=== PATIENT | female | born 1975 | race African-American/Black ===

== ENCOUNTER 2019-06-10 02:40 | Inpatient (IN) | payer MEDICARE ==
[2019-06-10 04:28] LABS: Troponin I 0.062 ng/mL (< 0.028)
[2019-06-10 07:08] LABS: Troponin I 0.043 ng/mL (< 0.028)
[2019-06-10 07:30] LABS: Acetaminophen Less than 6.0 mcg/mL (10.0-30.0); Alcohol Less than 10 mg/dL (Less than 10); Salicylate Less than 8.0 mg/dL (15.0-30.0)
--- NOTE | 2019-06-10 07:55 | PDOC.HHP ---
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 She was tachycardic in [place] to 120 and [place] 210/100, got lasix and nitropaste and BP improved, 130/90s now. PCP is Dr Israel, she has seen cardiology a long time ago when she was first diagnosed with chf but has not been a problem for a long time until this week and does not even remember cardiologists name. last stress test was negative but that was about 5 years ago per patient. she is on arb, coreg, lasix at home w/ asa and is compliant Hospitalist ROS - Review of Systems Constitutional: reports: chills, weakness. denies: fever Eyes: denies: vision change, redness ENT: reports: nose discharge, nose congestion, throat pain. denies: ear pain, throat swelling Respiratory: reports: cough, shortness of breath, SOB with excertion Cardiovascular: denies: chest pain, palpitations Gastrointestinal: denies: nausea, vomiting Genitourinary: denies: dysuria, frequency Musculoskeletal: denies: neck pain, shoulder pain Skin: denies: rash, lesions Neurological: denies: weakness, numbness All other systems reviewed; all pertinent +/- noted in HPI/Subj - Medication Medications: reviewed, see chart for list Hospitalist History - Past Medical History Other Medical History: CHF, HTN - Past Surgical History Past Surgical History: reports: Tubal Ligation - Family History Family History: reports: no pertinent history - Social History Smoking Status: Never smoker Alcohol: reports: None Drugs: reports: none - Exam General Appearance: NAD, awake alert Eye: PERRL, anicteric sclera ENT: normocephalic atraumatic, no oropharyngeal lesions, moist mucosa Neck: supple, symmetric, no JVD, no thyromegaly, no lymphadenopathy, no carotid bruit Heart: RRR, no murmur, no gallops, no rubs, normal peripheral pulses Respiratory: CTAB, no wheezes, no rales, no ronchi, normal chest expansion, no tachypnea, normal percussion Gastrointestinal: soft, non-tender, non-distended, normal bowel sounds, no palpable masses, no hepatomegaly, no splenomegaly, no bruit Extremities: no cyanosis, no clubbing, 2+ LE edema Skin: no lesions, no rashes Neurological: cranial nerve grossly intact, normal sensation to touch, no weakness, no focal deficits, no new deficit Musculoskeletal: normal tone, normal strength, no muscle wasting Psychiatric: normal affect, normal behavior, A&O x 3 Hospitalist Results - Labs Lab results: Troponin I 0.043 ng/mL (< 0.028) H 06/10/19 06:36 Additional comment: EKG sinus [address] elevations or depressions Hospitalist H&P A/P - Plan Plan: 43 year old female admitted for: # acute on chronic heart failure, type unknown - echo - trend troponins - continue home cardiac meds and ASA, continue nitro ointment - increase hydralazine to 50mg TID from 25 - lasix 80mg IV BID - consult cardiology for risk stratification, negative stress test 5 years ago, normally has no symptoms, this exacerbation likely touched off by recent URI. note that labs on day of admission are mostly in chart from [place], there was a CXR w/ volume overload, no infiltrates, tni was 0.07 there as well # HTN urgency - was very high on admission, SBP in 210 range. this is likely due to volume overload. continue lasix as above, PRNs in chart, increase hydralazine for a few days and continue nitropaste until diuresis has a chance to work.
[2019-06-10] MEDS ORDERED: hydrALAZINE 20 MG/ML VIAL SLOW IVP PRN (07:58)
[2019-06-10] MEDS ORDERED: Ondansetron PF 4 MG/2 ML Vial IVP PRN (07:58)
[2019-06-10] MEDS ORDERED: Promethazine HCl 12.5 MG in Sodium Chloride 0.9% 50 ML IVPB PRN (07:58)
[2019-06-10] MEDS ORDERED: cloNIDine 0.1 MG TAB PO PRN (07:58)
[2019-06-10] MEDS ORDERED: Bisacodyl 10 MG SUPP PR PRN (08:00)
[2019-06-10] MEDS ORDERED: Bisacodyl 5 MG TAB PO PRN (08:00)
[2019-06-10] MEDS ORDERED: Acetaminophen 325 MG TAB PO PRN (08:00)
[2019-06-10] MEDS ORDERED: HYDROcodone/Acetaminophen 5/325 mg Tablet PO PRN (08:00)
[2019-06-10] MEDS ORDERED: Furosemide 100 MG/10 ML VIAL ONE ×2 (08:02→15:03)
[2019-06-10] MEDS ORDERED: Morphine 2 MG/ML SYRINGE SLOW IVP PRN (08:04)
[2019-06-10] MEDS: Furosemide 100 MG/10 ML VIAL SLOW IVP SCH ×2 (08:05→15:09)
[2019-06-10 08:32] LABS: Troponin I 0.049 ng/mL (< 0.028)
[2019-06-10] MEDS ORDERED: Enoxaparin Sodium 40 MG/0.4 ML SYRINGE ONE (08:41)
[2019-06-10] MEDS ORDERED: Aspirin Chewable 81 MG TAB ONE (08:41)
[2019-06-10] MEDS ORDERED: hydrALAZINE 25 MG TAB ONE ×2 (08:41→15:03)
[2019-06-10] MEDS: Aspirin 81 mg Enteric Coated Tablet PO SCH (08:49)
[2019-06-10] MEDS: Enoxaparin Sodium 40 MG/0.4 ML SYRINGE SC SCH (08:49)
[2019-06-10] MEDS: hydrALAZINE 25 MG TAB PO SCH ×3 (08:50→21:24)
[2019-06-10] MEDS: Senokot S 8.6-50 MG TAB PO SCH ×2 (08:51→21:24)
[2019-06-10 08:57] LABS: Amphetamine Not Detected (NotDetected); Barbiturates Screen Not Detected (NotDetected); Benzodiazepine Screen Not Detected (NotDetected); Cocaine Metabolite Screen Not Detected (NotDetected); Medtox Control Line Valid? VALID (VALID); Medtox Reader # READER 1; Methadone Not Detected (NotDetected); Methamphetamine Not Detected (NotDetected); Opiate Screen Not Detected (NotDetected); Oxycodone Screen Not Detected (NotDetected); Phencyclidine (PCP) Not Detected (NotDetected); THC/Cannabinoid Screen Not Detected (NotDetected); Tricyclic Screen Not Detected (NotDetected)
[2019-06-10 09:00] LABS: INR-International Normal Ratio 1.4; Prothrombin Time 17.1 SEC (12.0-14.7)
[2019-06-10 09:06] LABS: ALT (SGPT) 18 U/L (8-55); AST (SGOT) 22 U/L (5-34); Alkaline Phosphatase 63 U/L (40-110); Anion Gap 15 mmol/L (10-20); BUN (Urea Nitrogen) 10 mg/dL (7.0-18.7); Bilirubin, Direct 0.9 mg/dL (0.1-0.3); Bilirubin, Total 4.2 mg/dL (0.2-1.2); Calc. Creatinine Clearance 0 mL/min (70-130); Calcium 9.5 mg/dL (7.8-10.44); Carbon Dioxide 24 mmol/L (22-29); Chloride 105 mmol/L (98-107); Estimated GFR-MDRD Greater than 90; Glucose 99 mg/dL (70-105); Magnesium 1.7 mg/dL (1.6-2.6); Potassium 3.6 mmol/L (3.5-5.1); Protein, Total 7.9 g/dL (6.0-8.3); Sodium 140 mmol/L (136-145)
[2019-06-10 09:11] LABS: Band 6 % (5-11); Hemoglobin 11.3 g/dL (12.0-16.0); Lymphocytes 11 % (21-51); MDiff Complete? YES; Mean Corpuscular HGB CONC 30.9 g/dL (32.0-36.0); Mean Corpuscular Volume 74.4 fL (78.0-98.0); Mean Platelet Volume 8.4 fL (7.4-10.4); Microcytosis SLIGHT = 6-15 cells (100X) (0-5/hpf); Monocytes 2 % (0-10); Neutrophil 81 % (42-75); Platelet Count 351 thou/uL (130-400); Polychromasia SLIGHT = 2-3 cells (100X) (0-2/hpf); RBC Distribution Width 17.9 % (11.5-14.5); Red Blood Cell (RBC) Count 4.89 mill/uL (4.20-5.40); White Blood Cell (WBC) Count 16.9 thou/uL (4.8-10.8)
[2019-06-10] MEDS: Carvedilol 3.125 MG TAB PO SCH ×2 (09:58→21:24)
[2019-06-10] MEDS: Losartan 25 MG TAB PO SCH (09:58)
[2019-06-10 14:47] LABS: Troponin I 0.063 ng/mL (< 0.028)
[2019-06-10] MEDS ORDERED: Nitroglycerin 2% Ointment 1 INCH/1 GM Packet ONE (15:03)
[2019-06-10] MEDS: Nitroglycerin 2% Ointment 1 INCH/1 GM Packet TOP SCH ×2 (15:05→21:33)
--- NOTE | 2019-06-10 17:14 | PDOC.HOSPP ---
- Subjective Encounter Date: 06/10/19 Encounter Time: 12:00 Subjective: sob is slightly better, is passing a lot of urine daughter at bedside getting a echo done - Objective Vital Signs & Weight: Vital Signs (12 hours) Pulse 06/10/19 15:09 98 06/10/19 08:50 117 H Result Diagrams: 06/10/19 08:31 06/10/19 08:31 Hospitalist ROS - Medication Medications: Active Medications Generic Name Dose Route Start Last Admin Trade Name Freq PRN Reason Stop Dose Admin Aspirin 81 mg 06/10/19 09:00 06/10/19 08:49 Ecotrin PO 81 mg DAILY NADIYA Administration Carvedilol 3.125 mg 06/10/19 09:00 06/10/19 09:58 Coreg PO 3.125 mg BID NADIYA Administration Enoxaparin Sodium 40 mg 06/10/19 09:00 06/10/19 08:49 Lovenox SC 40 mg 0900 NADIYA Administration Furosemide 80 mg 06/10/19 06:00 06/10/19 15:09 Lasix SLOW IVP 80 mg 0600,1400 NADIYA Administration Hydralazine HCl 50 mg 06/10/19 09:00 06/10/19 15:09 Apresoline PO 50 mg TID NADIYA Administration Losartan Potassium 100 mg 06/10/19 09:00 06/10/19 09:58 Cozaar PO 100 mg DAILY NADIYA Administration Nitroglycerin 0.5 inch 06/10/19 14:00 06/10/19 15:05 Nitro-Bid 2% Ointment TOP 0.5 inch Q8HR NADIYA Administration Pantoprazole Sodium 40 mg 06/10/19 09:00 06/10/19 08:51 Protonix PO 40 mg DAILY NADIYA Administration Senna/Docusate Sodium 1 tab 06/10/19 09:00 06/10/19 08:51 Senokot S PO 1 tab BID NADIYA Administration Sodium Chloride 10 ml 06/10/19 09:00 06/10/19 08:05 Flush - Normal Saline IVF 10 ml Q12HR NADIYA Administration - Exam General Appearance: awake alert Eye: PERRL, anicteric sclera ENT: no oropharyngeal lesions, moist mucosa Neck: supple, JVD Heart: RRR, no murmur Respiratory: no wheezes, rales Gastrointestinal: soft, non-tender, non-distended, normal bowel sounds Extremities: no cyanosis, 1+ LE edema Neurological: cranial nerve grossly intact, no focal deficits Psychiatric: normal affect, A&O x 3 Hosp A/P (1) Acute exacerbation of CHF (congestive heart failure) Code(s): I50.9 - HEART FAILURE, UNSPECIFIED Status: Acute Qualifiers: Heart failure type: systolic Qualified Code(s): I50.23 - Acute on chronic systolic (congestive) heart failure (2) Hypertensive urgency Code(s): I16.0 - HYPERTENSIVE URGENCY Status: Acute (3) Obesity Code(s): E66.9 - OBESITY, UNSPECIFIED Status: Chronic (4) Dyslipidemia Code(s): E78.5 - HYPERLIPIDEMIA, UNSPECIFIED Status: Chronic - Plan is on aggressive dose of diuretics, will scale it down in am htn is slowly getting controlled is on nitropaste, coreg, cozaar, hydralazine, and multiple prn's hemostable echo shows ef of 35% cardio consultation last stress test was years ago, ? more than 5 yrs back to [facility] as tolerated would want her BP to come down slowly, will likely get lower by am, donot push too many anti HTN prn's sbp around 160-180 is fine for today with scheduled meds
[2019-06-10 17:26] VITALS: BMI 57.4
[2019-06-10] MEDS ORDERED: guaiFENesin 100 MG/5 ML UDCUP PO PRN (18:43)
[2019-06-10 20:25] LABS: Troponin I 0.065 ng/mL (< 0.028)
[2019-06-10 21:21] LABS: Lactic Acid 1.4 mmol/L (0.5-2.2)
[2019-06-10 21:24] LABS: ALT (SGPT) 18 U/L (8-55); AST (SGOT) 23 U/L (5-34); Alkaline Phosphatase 62 U/L (40-110); Anion Gap 14 mmol/L (10-20); BUN (Urea Nitrogen) 12 mg/dL (7.0-18.7); Bilirubin, Total 4.1 mg/dL (0.2-1.2); Calc. Creatinine Clearance 196 mL/min (70-130); Calcium 9.7 mg/dL (7.8-10.44); Carbon Dioxide 26 mmol/L (22-29); Chloride 102 mmol/L (98-107); Estimated GFR-MDRD 85; Globulin 4.1 g/dL (2.4-3.5); Glucose 90 mg/dL (70-105); Magnesium 1.8 mg/dL (1.6-2.6); Potassium 3.8 mmol/L (3.5-5.1); Protein, Total 8.1 g/dL (6.0-8.3); Sodium 138 mmol/L (136-145)
[2019-06-11 05:05] LABS: #Basophils 0.1 thou/uL (0.0-0.2); #Eosinphils 0.1 thou/uL (0.0-0.7); #Lymphocytes 1.5 thou/uL (1.20-3.40); #Monocytes 0.6 thou/uL (0.11-0.59); #Neutrophils 7.2 thou/uL (1.40-6.50); %Basophils 0.5 % (0.0-1.0); %Eosinophils 1.5 % (0.0-10.0); %Lymphocytes 15.4 % (21.0-51.0); %Monocytes 6.5 % (0.0-10.0); Hemoglobin 10.6 g/dL (12.0-16.0); Mean Corpuscular HGB CONC 30.3 g/dL (32.0-36.0); Mean Corpuscular Hemoglobin 22.5 pg (27.0-31.0); Mean Corpuscular Volume 74.2 fL (78.0-98.0); Mean Platelet Volume 8.5 fL (7.4-10.4); Platelet Count 337 thou/uL (130-400); RBC Distribution Width 17.3 % (11.5-14.5); Red Blood Cell (RBC) Count 4.69 mill/uL (4.20-5.40); White Blood Cell (WBC) Count 9.4 thou/uL (4.8-10.8)
[2019-06-11 05:32] LABS: Anion Gap 14 mmol/L (10-20); BUN (Urea Nitrogen) 12 mg/dL (7.0-18.7); Calc. Creatinine Clearance 216 mL/min (70-130); Calcium 9.1 mg/dL (7.8-10.44); Carbon Dioxide 24 mmol/L (22-29); Chloride 102 mmol/L (98-107); Estimated GFR-MDRD Greater than 90; Glucose 93 mg/dL (70-105); Magnesium 1.9 mg/dL (1.6-2.6); Potassium 3.5 mmol/L (3.5-5.1); Sodium 136 mmol/L (136-145)
[2019-06-11] MEDS: Furosemide 40 MG/4 ML VIAL SLOW IVP SCH ×2 (06:20→15:16)
[2019-06-11] MEDS: Nitroglycerin 2% Ointment 1 INCH/1 GM Packet TOP SCH ×2 (06:28→13:26)
[2019-06-11] MEDS: hydrALAZINE 25 MG TAB PO SCH ×2 (09:12→21:21)
[2019-06-11] MEDS: Senokot S 8.6-50 MG TAB PO SCH ×2 (09:12→21:26)
[2019-06-11] MEDS: Aspirin 81 mg Enteric Coated Tablet PO SCH (09:12)
[2019-06-11] MEDS: Carvedilol 3.125 MG TAB PO SCH ×2 (09:12→21:25)
[2019-06-11] MEDS: Enoxaparin Sodium 40 MG/0.4 ML SYRINGE SC SCH (09:12)
[2019-06-11] MEDS: Diabetic Tussin 200 MG/10 ML UDCUP PO PRN (09:19)
[2019-06-11] MEDS: Losartan 25 MG TAB PO SCH (09:30)
--- NOTE | 2019-06-11 14:15 | PDOC.HOSPP ---
- Subjective Encounter Date: 06/11/19 Encounter Time: 11:30 Subjective: sob is better, is sitting in chair slept better last night is diuresing well, no chest pain or dizziness - Objective Vital Signs & Weight: Vital Signs (12 hours) Temp Pulse Resp BP BP BP Pulse Ox 06/11/19 11:59 97.5 F L 95 16 97/51 L 95 06/11/19 09:12 98 123/87 06/11/19 07:38 97.6 F 98 26 H 123/87 92 L 06/11/19 03:13 98.2 F 95 20 108/64 95 Weight Weight 313 lb 9.6 oz I&O: 06/10/19 06/11/19 06/12/19 06:59 06:59 06:59 Intake Total 240 Output Total 775 Balance -535 Result Diagrams: 06/11/19 04:44 06/11/19 04:44 Hospitalist ROS - Medication Medications: Active Medications Generic Name Dose Route Start Last Admin Trade Name Freq PRN Reason Stop Dose Admin Acetaminophen 650 mg 06/10/19 08:00 06/10/19 21:22 Tylenol PO 650 mg Q4H PRN Administration Headache/Fever/Mild Pain (1-3) Aspirin 81 mg 06/10/19 09:00 06/11/19 09:12 Ecotrin PO 81 mg DAILY NADIYA Administration Bisacodyl 10 mg 06/10/19 08:00 06/10/19 19:28 Dulcolax PO 10 mg DAILYPRN PRN Administration Constipation Carvedilol 3.125 mg 06/10/19 09:00 06/11/19 09:12 Coreg PO 3.125 mg BID NADIYA Administration Enoxaparin Sodium 40 mg 06/10/19 09:00 06/11/19 09:12 Lovenox SC 40 mg 0900 NADIYA Administration Furosemide 40 mg 06/11/19 06:00 06/11/19 06:20 Lasix SLOW IVP 40 mg 0600,1400 NADIYA Administration Guaifenesin 300 mg 06/10/19 19:31 06/11/19 09:19 Robitussin Sf PO 300 mg Q6H PRN Administration Cough Hydralazine HCl 50 mg 06/10/19 09:00 06/11/19 09:12 Apresoline PO 50 mg TID NADIYA Administration Losartan Potassium 100 mg 06/10/19 09:00 06/11/19 09:30 Cozaar PO 100 mg DAILY NADIYA Administration Nitroglycerin 0.5 inch 06/10/19 14:00 06/11/19 13:26 Nitro-Bid 2% Ointment TOP Not Given Q8HR NADIYA Pantoprazole Sodium 40 mg 06/10/19 09:00 06/11/19 09:12 Protonix PO 40 mg DAILY NADIYA Administration Senna/Docusate Sodium 1 tab 06/10/19 09:00 06/11/19 09:12 Senokot S PO 1 tab BID NADIYA Administration Sodium Chloride 10 ml 06/10/19 09:00 06/11/19 09:30 Flush - Normal Saline IVF 10 ml Q12HR NADIYA Administration - Exam General Appearance: awake alert Eye: PERRL, anicteric sclera ENT: no oropharyngeal lesions, moist mucosa Neck: supple, no JVD Heart: RRR, no murmur Respiratory: no wheezes, no rales, rhonchi Gastrointestinal: soft, non-tender, non-distended, normal bowel sounds Extremities: no cyanosis, 1+ LE edema Neurological: cranial nerve grossly intact, no focal deficits Psychiatric: normal affect, A&O x 3 Hosp A/P (1) Acute exacerbation of CHF (congestive heart failure) Code(s): I50.9 - HEART FAILURE, UNSPECIFIED Status: Acute Qualifiers: Heart failure type: systolic Qualified Code(s): I50.23 - Acute on chronic systolic (congestive) heart failure (2) Hypertensive urgency Code(s): I16.0 - HYPERTENSIVE URGENCY Status: Resolved (3) Obesity Code(s): E66.9 - OBESITY, UNSPECIFIED Status: Chronic (4) Dyslipidemia Code(s): E78.5 - HYPERLIPIDEMIA, UNSPECIFIED Status: Chronic - Plan htn is well controlled now, reduce dose of hydralazine and dc nitropaste is on coreg, cozaar, hydralazine, and multiple prn's hemostable echo shows ef of 35% cardio consultation last stress test was years ago, ? more than 5 yrs back to amb as tolerated dc plan in am if no cardiac w/u is planned
--- NOTE | 2019-06-11 21:18 | CON ---
DATE OF CONSULTATION: REASON FOR CONSULTATION: Acute on chronic systolic heart failure. HISTORY OF PRESENT ILLNESS: Ms. Childs is a 43-year-old woman who was seen and evaluated in the past. She was last seen 4 years ago. At that time, she had an LVEF 35% to 40%. This is felt to be nonischemic. She has been lost to follow up. She has not been seen or evaluated by Cardiology in the past. She states she had dietary indiscretion over the holidays. She had increased edema in addition to increased shortness of breath. No chest pain, pressure, dizziness, lightheadedness, syncope or presyncope present. PAST MEDICAL HISTORY: Chronic systolic heart failure, hypertension, BTL. SOCIAL HISTORY: No current tobacco or alcohol use. She is currently employed. FAMILY HISTORY: Negative for CAD. HOME MEDICATIONS: 1. Hydralazine. 2. Lasix. 3. Iron sulfate. 4. Losartan. 5. Carvedilol. REVIEW OF SYSTEMS: A 10-point review of systems is reviewed and as above, otherwise negative. PHYSICAL EXAMINATION: GENERAL: Patient is a pleasant female who is in no acute distress. The patient appears their stated age. VITAL SIGNS: Blood pressure 99/58, pulse 94, temperature 97.5. NEUROLOGIC: The patient is alert and oriented x3 with no focal neurologic deficits. HEENT: Sclerae without icterus. Mouth has moist mucous membranes with normal pallor. NECK: No JVD. Carotid upstroke brisk. No bruits bilaterally. LUNGS: Crackles noted bilaterally. BACK: No scoliosis or kyphosis. CARDIAC: Regular rate and rhythm with normal S1 and S2. No S3 or S4 noted. No significant rubs, murmurs, thrills, or gallops noted throughout the precordium. PMI is not displaced. There is no parasternal heave. ABDOMEN: Soft, nontender, nondistended. No peritoneal signs present. No hepatosplenomegaly. No abnormal striae. EXTREMITIES: 2+ femoral and 2+ dorsalis pedis pulses. No cyanosis, clubbing, or edema. SKIN: No gross abnormalities. PERTINENT LABORATORY DATA: Hemoglobin 10.6. Creatinine 0.79. Peak troponin 0.065. Echo Doppler shows LVEF 30% to 35%, [id number] MR present. IMPRESSION: Acute on chronic systolic heart failure. Likely etiology is dietary discretion. RECOMMENDATIONS: As follows: 1. Continue carvedilol in addition to losartan. 2. Continue Lasix at 40 mg IV b.i.d. unless blood pressure decreases to consistent 90s systolic or if symptomatic. 3. Consider adding Entresto. 4. 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 Job ID: [id number]
[2019-06-12 05:16] LABS: #Basophils 0.1 thou/uL (0.0-0.2); #Eosinphils 0.3 thou/uL (0.0-0.7); #Lymphocytes 1.6 thou/uL (1.20-3.40); #Monocytes 0.6 thou/uL (0.11-0.59); #Neutrophils 5.6 thou/uL (1.40-6.50); %Basophils 0.7 % (0.0-1.0); %Eosinophils 3.4 % (0.0-10.0); %Lymphocytes 19.9 % (21.0-51.0); %Monocytes 6.9 % (0.0-10.0); %Neutrophils 69.1 % (42.0-75.0); Hemoglobin 10.7 g/dL (12.0-16.0); Mean Corpuscular HGB CONC 30.7 g/dL (32.0-36.0); Mean Corpuscular Hemoglobin 22.9 pg (27.0-31.0); Mean Corpuscular Volume 74.6 fL (78.0-98.0); Mean Platelet Volume 8.1 fL (7.4-10.4); Platelet Count 336 thou/uL (130-400); RBC Distribution Width 17.1 % (11.5-14.5); Red Blood Cell (RBC) Count 4.69 mill/uL (4.20-5.40); White Blood Cell (WBC) Count 8.2 thou/uL (4.8-10.8)
[2019-06-12 06:03] LABS: Anion Gap 12 mmol/L (10-20); BUN (Urea Nitrogen) 13 mg/dL (7.0-18.7); Calc. Creatinine Clearance 188 mL/min (70-130); Calcium 9.2 mg/dL (7.8-10.44); Carbon Dioxide 27 mmol/L (22-29); Chloride 104 mmol/L (98-107); Estimated GFR-MDRD 88; Glucose 99 mg/dL (70-105); Potassium 3.5 mmol/L (3.5-5.1); Sodium 139 mmol/L (136-145)
[2019-06-12] MEDS: Furosemide 40 MG/4 ML VIAL SLOW IVP SCH ×2 (07:08→13:58)
[2019-06-12] MEDS: Senokot S 8.6-50 MG TAB PO SCH ×2 (09:17→22:26)
[2019-06-12] MEDS: Carvedilol 3.125 MG TAB PO SCH (09:17)
[2019-06-12] MEDS: Aspirin 81 mg Enteric Coated Tablet PO SCH (09:17)
[2019-06-12] MEDS: hydrALAZINE 25 MG TAB PO SCH ×2 (09:17→22:26)
[2019-06-12] MEDS: Losartan 25 MG TAB PO SCH (09:17)
[2019-06-12] MEDS: Enoxaparin Sodium 40 MG/0.4 ML SYRINGE SC SCH (09:17)
[2019-06-12] MEDS: Diabetic Tussin 200 MG/10 ML UDCUP PO PRN ×2 (09:18→22:25)
--- NOTE | 2019-06-12 15:00 | PDOC.HOSPP ---
- Subjective Encounter Date: 06/12/19 Encounter Time: 11:15 Subjective: no sob, is amb in room no chest pain or dizziness feels better - Objective Vital Signs & Weight: Vital Signs (12 hours) Temp Pulse Resp BP BP Pulse Ox 06/12/19 11:22 97.7 F 98 24 H 100/66 98 06/12/19 09:17 97 120/68 06/12/19 07:25 97.6 F 97 20 98/66 94 L 06/12/19 04:00 98.5 F 91 18 99/55 L 98 Weight Weight 312 lb 3.2 oz I&O: 06/11/19 06/12/19 06/13/19 06:59 06:59 06:59 Intake Total 240 240 Output Total 982 6054 Balance -795 -541 Result Diagrams: 06/12/19 04:54 06/12/19 04:54 Hospitalist ROS - Medication Medications: Active Medications Generic Name Dose Route Start Last Admin Trade Name Freq PRN Reason Stop Dose Admin Acetaminophen 650 mg 06/10/19 08:00 06/10/19 21:22 Tylenol PO 650 mg Q4H PRN Administration Headache/Fever/Mild Pain (1-3) Aspirin 81 mg 06/10/19 09:00 06/12/19 09:17 Ecotrin PO 81 mg DAILY NADIYA Administration Bisacodyl 10 mg 06/10/19 08:00 06/10/19 19:28 Dulcolax PO 10 mg DAILYPRN PRN Administration Constipation Enoxaparin Sodium 40 mg 06/10/19 09:00 06/12/19 09:17 Lovenox SC 40 mg 0900 NADIYA Administration Furosemide 40 mg 06/11/19 06:00 06/12/19 13:58 Lasix SLOW IVP 40 mg 0600,1400 NADIYA Administration Guaifenesin 300 mg 06/10/19 19:31 06/12/19 09:18 Robitussin Sf PO 300 mg Q6H PRN Administration Cough Hydralazine HCl 25 mg 06/11/19 21:00 06/12/19 09:17 Apresoline PO 25 mg BID NADIYA Administration Pantoprazole Sodium 40 mg 06/10/19 09:00 06/12/19 09:17 Protonix PO 40 mg DAILY NADIYA Administration Senna/Docusate Sodium 1 tab 06/10/19 09:00 06/12/19 09:17 Senokot S PO 1 tab BID NADIYA Administration Sodium Chloride 10 ml 06/10/19 09:00 06/12/19 09:18 Flush - Normal Saline IVF 10 ml Q12HR NADIYA Administration - Exam General Appearance: NAD, awake alert Eye: PERRL, anicteric sclera ENT: no oropharyngeal lesions, moist mucosa Neck: supple, no JVD Heart: RRR, no murmur Respiratory: no wheezes, no rales Gastrointestinal: soft, non-tender, non-distended, normal bowel sounds Extremities: no cyanosis, no edema Neurological: cranial nerve grossly intact, no focal deficits Psychiatric: normal affect, A&O x 3 Hosp A/P (1) Acute exacerbation of CHF (congestive heart failure) Code(s): I50.9 - HEART FAILURE, UNSPECIFIED Status: Acute Qualifiers: Heart failure type: systolic Qualified Code(s): I50.23 - Acute on chronic systolic (congestive) heart failure (2) Hypertensive urgency Code(s): I16.0 - HYPERTENSIVE URGENCY Status: Resolved (3) Obesity Code(s): E66.9 - OBESITY, UNSPECIFIED Status: Chronic (4) Dyslipidemia Code(s): E78.5 - HYPERLIPIDEMIA, UNSPECIFIED Status: Chronic - Plan htn is well controlled now is on coreg, cozaar, hydralazine, and multiple prn's hemostable echo shows ef of 35%, for life vest per staff. might need outpt stress test/cath per cardio advice Appreciate help. last stress test was years ago, more than 4 yrs back to amb as tolerated dc plan per cardio advice
[2019-06-13 05:38] LABS: Anion Gap 10 mmol/L (10-20); BUN (Urea Nitrogen) 15 mg/dL (7.0-18.7); Calc. Creatinine Clearance 189 mL/min (70-130); Calcium 9.2 mg/dL (7.8-10.44); Carbon Dioxide 30 mmol/L (22-29); Chloride 102 mmol/L (98-107); Estimated GFR-MDRD 89; Glucose 97 mg/dL (70-105); Magnesium 2.1 mg/dL (1.6-2.6); Potassium 4.1 mmol/L (3.5-5.1); Sodium 138 mmol/L (136-145)
[2019-06-13 06:23] LABS: #Basophils 0.1 thou/uL (0.0-0.2); #Eosinphils 0.3 thou/uL (0.0-0.7); #Monocytes 0.6 thou/uL (0.11-0.59); #Neutrophils 5.2 thou/uL (1.40-6.50); %Basophils 0.6 % (0.0-1.0); %Eosinophils 3.7 % (0.0-10.0); %Lymphocytes 24.4 % (21.0-51.0); %Monocytes 7.8 % (0.0-10.0); %Neutrophils 63.6 % (42.0-75.0); Anisocytosis SLIGHT = 6-15 cells (100X) (0-5/hpf); MDiff Complete? YES; Mean Corpuscular HGB CONC 29.8 g/dL (32.0-36.0); Mean Corpuscular Hemoglobin 22.7 pg (27.0-31.0); Mean Corpuscular Volume 76.2 fL (78.0-98.0); Mean Platelet Volume 8.2 fL (7.4-10.4); Platelet Count 366 thou/uL (130-400); Red Blood Cell (RBC) Count 4.85 mill/uL (4.20-5.40); White Blood Cell (WBC) Count 8.2 thou/uL (4.8-10.8)
[2019-06-13] MEDS: Furosemide 40 MG/4 ML VIAL SLOW IVP SCH ×2 (06:55→15:28)
--- NOTE | 2019-06-13 08:18 | PRG ---
DATE OF SERVICE: 06/13/2019 SUBJECTIVE: Ms. Childs is doing well. She is back to baseline. No current complaints. She states her shortness of breath has resolved. OBJECTIVE: VITAL SIGNS: Blood pressure 129/76, pulse 105, and temperature 99.4. LUNGS: Clear to auscultation. HEART: Regular rate and rhythm. ABDOMEN: Soft, nontender, and nondistended. EXTREMITIES: 1+ pitting edema. PERTINENT LABORATORY DATA: Hemoglobin 11, hematocrit 36. Creatinine 0.84. IMPRESSION: 1. Acute on chronic systolic heart failure. 2. Morbid obesity. 3. Noncompliance. RECOMMENDATIONS: 1. Continue aspirin 81 daily, carvedilol 6.25 b.i.d., digoxin 0.125 daily, and losartan 100 mg daily. 2. Consider discontinuing losartan as an outpatient and adding Entresto. 3. Director Dental Services on sodium and fluid restriction. 4. Recommend weight loss. 5. LifeVest in place. 6. Follow up with Chapis Porras in the office in 1 to 2 weeks. Job ID: [id number]
[2019-06-13] MEDS ORDERED: Digoxin 0.125 MG TAB PO SCH (09:00)
[2019-06-13] MEDS ORDERED: Losartan 25 MG TAB PO SCH (09:00)
[2019-06-13] MEDS ORDERED: Carvedilol 3.125 MG TAB PO SCH (09:00)
[2019-06-13] MEDS: Enoxaparin Sodium 40 MG/0.4 ML SYRINGE SC SCH (10:56)
[2019-06-13] MEDS: Aspirin 81 mg Enteric Coated Tablet PO SCH (10:59)
[2019-06-13] MEDS: Senokot S 8.6-50 MG TAB PO SCH (10:59)
[2019-06-13] MEDS: hydrALAZINE 25 MG TAB PO SCH (11:00)
[2019-06-13 12:10] VITALS: BP 109/75; TEMP 98.2
[2019-06-13] MEDS: Diabetic Tussin 200 MG/10 ML UDCUP PO PRN (15:20)
--- NOTE | 2019-06-13 16:47 | DIS ---
DATE OF ADMISSION: 06/10/2019 DATE OF DISCHARGE: 06/13/2019 DISCHARGE DISPOSITION: Home. PRIMARY DISCHARGE DIAGNOSES: Acute on chronic congestive heart failure exacerbation with systolic dysfunction, class C, [place] Heart Association class 3; hypertensive urgency on arrival, resolved; obesity; dyslipidemia. PROCEDURES DONE DURING HOSPITALIZATION: The patient has had echo with 2D Doppler done, which showed an EF of 30% to 35%. Left atrium was severely dilated. LV size was moderately increased. Chest x-ray done showed cardiomegaly with pulmonary vascular congestion. H and H of 11 and 36, platelet count 366 with 63% neutrophils, MCV 76. Discharge BUN and creatinine are 15 and 0.8. Albumin is 4. BNP 876. Urine drug screen was negative. DISCHARGE MEDICATIONS: 1. Ferrous sulfate 325 mg p.o. daily. 2. Lasix 40 mg twice daily. 3. Hydralazine 50 mg twice daily. 4. Aspirin 81 mg p.o. daily. 5. Coreg 6.25 mg p.o. twice daily. 6. Cozaar 50 mg daily. 7. Digoxin 0.125 mg p.o. daily. ALLERGIES: LISINOPRIL. DISCHARGE PLAN: The patient to follow up with Dr. Davila in 2 to 3 weeks. She needs to follow up with Dr. Israel, primary care physician, on the at 1 o'clock. The patient will also have cardiac rehab arranged in [place]. INPATIENT CONSULT: Dr. Davila for Cardiology. BRIEF COURSE DURING HOSPITALIZATION: The patient initially was brought to emergency room with complaints of shortness of breath on exertion. She has had bilateral lower extremity edema as well. Her initial blood pressures were 210/100 on arrival. The patient was admitted to telemetry and has had gentle diuresis done along with slow titration of her hypertension down. She has had consultation with Dr. Davila. The patient's ejection fraction was 30% to 35%. Her medications were optimized. She was placed on LifeVest. The plan is to place her Entresto. Likely, this will be done when she follows up with Dr. Davila. She is currently on Cozaar, which needs to be discontinued 3 days prior to her starting Entresto. She has remained hemodynamically stable, ambulating, and eating well prior to discharge. Her hypertension is well controlled prior to discharge. Please note, I have seen and examined the patient on the day of discharge. Job ID: [id number]
--- NOTE | 2019-06-14 05:52 | PQF ---
[facility] Staff Certified Nurse Midwife Crystal Reports [facility] HUY Almazan RAMON HERNANDEZ MD [id number] [address] [place] [address] [id number] CLINICAL DOCUMENTATION CLARIFICATION FORM: POST DISCHARGE Addendum to original discharge summary date: ____ Late entry note date: __ DATE: 06/14/2019 ATTN:RAMON ASHRAF MD Please exercise your independent, professional judgment in responding to the clarification form. Clinical indicators are provided on the bottom of this form for your review Please check appropriate box(s): AMI TYPE: [ ] Acute Coronary Syndrome (ACS) without Acute MO meaning Unstable Angina [ ] NSTEMI (MO type I) [ x ] NSTEMI due to Demand Ischemia (AMI Type II) [ x ] Demand Ischemia without MO [ ] STEMI (please also specify site and arterysee below) If STEMI, SITE:[ ] Anterior [ ] Apical [ ] Lateral [ ] Inferior [ ] Posterior [ ] Q Wave [ ] Septal [ ] Unable to Determine SPECIFIC ARTERY (Based on site) [ ] Left Main Coronary[ ] Diagonal [ ] Left Anterior Descending[ ] Oblique Marginal [ ] Right Coronary Artery[ ] Unable to Determine [ ] Left Circumflex ONSET OF INFARCTION: [ ] Onset Less than 4 weeks of admission [ ] Onset Greater than 4 weeks of admission [ ] Unable to determine DUE TO (if applicable): [ ] Stent occlusion [ ] In-Stent stenosis [ ] Occlusion of coronary bypass graft [ ] Complication of PCI [ ] Underlying CAD [ ] Other [ ] Other diagnosis [ ] Unable to determine In addition, please specify: Present on Admission (POA): [ x ] Yes [ ] No [ ] Unable to determine CLINICAL INDICATORS - SIGNS / SYMPTOMS / LABS Elevated Troponin 0.065 - Documented in Laboratory HTN Urgency -Documented in DS on 06/13 by RAMON OVIEDO MD Trend troponin - Documented in H&P on 06/10 by Rico Cagle Continue cardiac Meds and ASA continue Nitro Oinment - Documented in H&P on by Rico Cagle RISKS: Acute on chronic systolic CHF - Documented in DS on 06/13 by RAMON OVIEDO MD HTN TREATMENTS: Echocardiogram Aspirin 81 mg Lasix 80mg IV (This form is maintained as a part of the permanent medical record) 2014 [employer], [employer]. All Rights Reserved [email or web address] [not provided] MTDD
== END 2019-06-13 15:55 | disposition home or self-care (01) | DRG 281 ==
LOC: ERS 02:40 → ERHOLD 03:38 → 2SE 16:49
PROVIDERS: ADMIT Internal Medicine; ATTEND Internal Medicine
DX: I11.0 Hypertensive heart disease with heart failure (principal); I21.A1 Myocardial infarction type 2; Z68.43 Body mass index [BMI] 50.0-59.9, adult; Z79.899 Other long term (current) drug therapy; Z98.51 Tubal ligation status; I16.0 Hypertensive urgency; I50.23 Acute on chronic systolic (congestive) heart failure; E78.5 Hyperlipidemia, unspecified; E66.01 Morbid (severe) obesity due to excess calories; Z91.14 Patient's other noncompliance with medication regimen
CPT/HCPCS: 36415; 80048; 80076; 80306; 80307; 83605; 83735; 83880; 84100; 84443; 84484; 85025; 85610; 93005; 93306; 93798; J1650; J1940

== ENCOUNTER 2019-07-20 15:10 | Inpatient (IN) | payer MEDICARE ==
[2019-07-20 16:50] LABS: CKMB 3.2 ng/mL (0-6.6)
[2019-07-20] MEDS ORDERED: Ondansetron PF 4 MG/2 ML Vial IVP PRN (19:04)
[2019-07-20] MEDS ORDERED: Acetaminophen 325 MG TAB PO PRN (19:04)
[2019-07-20] MEDS ORDERED: Bisacodyl 10 MG SUPP PR PRN (19:04)
[2019-07-20] MEDS ORDERED: Guaifenesin DM 100-10/5 ML UDCUP PO PRN (19:04)
[2019-07-20] MEDS ORDERED: Senokot S 8.6-50 MG TAB PO PRN (19:04)
[2019-07-20] MEDS ORDERED: Diltiazem 125 MG in Sodium Chloride 0.9% 100 ML IVPB SCH (19:15)
[2019-07-20 19:42] VITALS: BMI 49.5
[2019-07-20] MEDS: Carvedilol 6.25 MG TAB PO SCH (20:08)
[2019-07-20] MEDS: Enoxaparin Sodium 30 MG/0.3 ML SYRINGE SC SCH (20:08)
[2019-07-20] MEDS: Famotidine 20 MG TAB PO SCH (20:08)
[2019-07-20] MEDS: Enoxaparin Sodium 100 MG/ML SYRINGE SC SCH (20:08)
[2019-07-20] MEDS: Furosemide 40 MG TAB PO SCH (20:08)
--- NOTE | 2019-07-20 21:30 | HP ---
REASON FOR ADMISSION: Atrial flutter, new onset. HISTORY OF PRESENTING ILLNESS: The patient gives history of having a routine followup to see her primary care physician, Dr. Israel. In the triage area, patient was found to have had a heart rate at 156 per minute. Her blood pressure was fine. The patient did not have any feeling of palpitations when this happened. She was sent to [facility] from where she was transferred here. The patient's EKG at [facility] showed atrial flutter at 167 beats per minute. The patient has had complaints of cough from last 2 days. She was also exposed to her granddaughter who had flu. Patient has felt feverish. She has had some poor appetite due to coughing. Ms. Childs states she saw Dr. Davila before the holidays for her cardiomyopathy. No fever at present now. No expectoration with her cough. Has no shortness of breath, PND, or orthopnea. The patient in fact states after her last hospitalization here in June, she has been ambulating more now. PAST MEDICAL AND SURGICAL HISTORY: History of cardiomyopathy with EF of 30% to 35%, obesity, hypertension, dyslipidemia, tubal ligation. CURRENT MEDICATIONS: The patient is on; 1. Carvedilol 6.25 mg twice daily. 2. Lasix 40 mg twice daily. 3. Ferrous sulfate 325 mg daily. 4. Aspirin 81 mg p.o. daily. 5. Entresto 24/26 mg 1 tab twice daily. 6. Digoxin 0.125 mg p.o. daily. The patient had tongue swelling for lisinopril, but has been tolerating Entresto well. PERSONAL HISTORY: Does not abuse alcohol or drugs. No history of smoking. FAMILY HISTORY: Mother at the age of 75. She had history of ovarian cancer. Father is living and is healthy. CODE STATUS: Full. Power of traffic law attorney is Ms. Miranda, her daughter. REVIEW OF SYSTEMS: CONSTITUTIONAL: Negative for weight loss or gain, ability to conduct usual activities. SKIN: Negative for rash, itching. EYES: Negative for double vision, pain. ENT/MOUTH: Negative for nose bleeding, neck stiffness, pain, tenderness. CARDIOVASCULAR: Negative for palpitations, dyspnea on exertion, orthopnea. RESPIRATORY: Negative for shortness of breath, wheezing, cough, hemoptysis, fever or night sweats. GASTROINTESTINAL: Negative for poor appetite, abdominal pain, heartburn, nausea, vomiting, constipation, or diarrhea. GENITOURINARY: Negative for urgency, frequency, dysuria, nocturia. MUSCULOSKELETAL: Negative for pain, swelling. NEUROLOGIC/PSYCHIATRIC: Negative for anxiety, depression. ALLERGY/IMMUNOLOGIC: Negative for skin rash, bleeding tendency. PHYSICAL EXAMINATION: GENERAL: The patient is a 43-year-old female who is currently not in any acute distress. VITAL SIGNS: Blood pressure 126/84, pulse 102 per minute, respiratory rate 18 per minute, temperature 98.3 degrees Fahrenheit, saturating 98% on room air. NECK: Supple. No elevated JVD. HEENT: Eyes; extraocular muscles intact. Pupils reacting to light. Oral cavity; mucous membranes are moist. No exudates or congestion. CARDIOVASCULAR SYSTEM: S1 and S2 heard. Irregular rhythm. RESPIRATORY SYSTEM: Air entry 1+ bilateral. No rales or rhonchi. ABDOMEN: Soft. Bowel sounds heard. No tenderness, rigidity, or guarding. EXTREMITIES: No peripheral edema or calf tenderness. VASCULAR SYSTEM: Peripheral pulses 1+ bilateral. No ischemic ulcerations or gangrene. CENTRAL NERVOUS SYSTEM: No gross focal deficits noted. The patient is alert, awake, and oriented well. PSYCHIATRIC SYSTEM: Patient's mood is euthymic. No hallucinations or delusions. LABORATORY DATA: Chest x-ray done shows cardiomegaly and no acute infiltrates seen. EKG done at [facility] at 12:44 p.m. shows atrial flutter at 167 beats per minute. Troponin I 0.10, CK-MB 2.7. BNP 156. Digoxin 0.53. Albumin 4.2, BUN 20, creatinine 0.9, serum bicarb 22, serum glucose 90. PT/INR 14 and 1.2, PTT is 26. White count of 3.6, H and H 13 and 47, platelet count 350, MCV 74 with 46% neutrophils, 4% bands, and 39% lymphocytes with 11% monocytes. CLINICAL IMPRESSION AND PLAN: The patient will be admitted to telemetry for new onset atrial flutter. Her rate is currently controlled on Cardizem drip at 5 mg an hour and will continue the same. If the patient was to become symptomatic with shortness of breath and palpitation, she will be switched over to amiodarone drip in view of ejection fraction of around 35%. We will continue her current dose of Coreg, Entresto, Lasix 40 mg twice daily, digoxin 0.125 mg daily, and aspirin 81 mg daily. The patient will also be placed on Lovenox 130 mg subcu twice daily. I have consulted Dr. Brewer for possible ablation of her atrial flutter on Tuesday. We will also consult Dr. Crews for Cardiology. An echo with 2D Doppler will be obtained to rule out thrombus. We will do a respiratory virus panel PCR to rule out flu or other upper respiratory infection which might have triggered current situation. She states she is compliant with her LifeVest, although her LifeVest is in her car at present. She will be closely monitored on telemetry for now. Job ID: [id number]
[2019-07-20] MEDS ORDERED: Digoxin 0.5 MG/2 ML AMP SLOW IVP SCH (22:30)
--- NOTE | 2019-07-21 01:34 | CON ---
DATE OF CONSULTATION: 07/20/2019 INDICATION FOR CONSULTATION: A 43-year-old female with new onset atrial fibrillation. HISTORY OF PRESENT ILLNESS: This 43-year-old female has been seen by Dr. Davila about 4 or 5 years ago and she was somewhat lost to followup. At that time, she had a cardiomyopathy with ejection fraction 35% to 40%, which was nonischemic. She had a cardiac catheterization according to the patient, which shows she had normal coronary arteries. She then was presented again in, I believe June of 2019, to the hospital with some pneumonia and was diagnosed at that time also with congestive heart failure, which was felt to be systolic in nature, was felt to be chronic. She has a history of hypertension. She has been doing very well. She was recently seen by Dr. Davila in the office just before the holidays and her losartan was stopped and she was started on Entresto. Since that time, she states she has actually been feeling somewhat better, but she presented to the doctor's office today and she had been having some coughing, some mild congestion. She had a low-grade temp she thought, and when she was in the doctor's office today, she was noted to be in atrial fibrillation with rapid ventricular response, heart rate was 150. She has been started on IV diltiazem, was transferred to the [facility] here. She was otherwise asymptomatic with the atrial fibrillation. Since being here, the patient has apparently been in sinus rhythm. I do not know exactly when she converted. There were no EKGs in the chart that I can find that would show when she converted back to sinus rhythm, but at this time, she is in a sinus rhythm. She remains very regular. She is still asymptomatic. She feels fine and otherwise she is stable. She did not have any complaints. No chest pain. No shortness of breath or edema at the time of the episodes of the atrial fibrillation. She was to follow up with Dr. Davila later on this month in the office, most likely to continue to titrate the Entresto. Otherwise, she remains very stable at this time. PAST MEDICAL HISTORY: Significant for the congestive heart failure, hypertension, and bilateral tubal ligation. SOCIAL HISTORY: She has five children, they are all alive and well. She has no alcohol or tobacco abuse. FAMILY HISTORY: Unremarkable for any early heart disease. MEDICATIONS: Included, 1. Lasix 40 mg a day. 2. Ferrous sulfate was 325 mg once a day. 3. Coreg 3.125 mg twice a day. 4. She was taking aspirin 81 mg a day as well as the Entresto one twice a day. 5. She was taking digoxin 125 mcg once a day. ALLERGIES: THERE WAS A QUESTION OF ALLERGY TO LISINOPRIL WITH A COUGH THAT IS WHY SHE WAS PLACED ON THE [place]AN IN THE PAST, BUT THIS HAS SINCE BEEN STOPPED AND SHE IS ON ENTRESTO. REVIEW OF SYSTEMS: 12-point review of systems is unremarkable except what is noted in the history of present illness. PHYSICAL EXAMINATION: GENERAL: Reveals a middle-aged, obese female, who is in no acute distress. She is alert. She is oriented. VITAL SIGNS: Show blood pressure 113/79. She is afebrile. Heart rate is 82, respiratory rate is 18, and O2 saturation is 98%. HEENT: Shows the head to be normocephalic and atraumatic. Carotid pulses are present. There were no bruits. CHEST: Actually clear to auscultation. There were no rales, rhonchi, or wheezing noted. CARDIOVASCULAR: At this time reveals a regular rate and rhythm. She has normal S1 and S2. I cannot hear an S3 nor an S4. There were no significant murmurs, heaves, thrills, bruits, or rubs. ABDOMEN: Shows morbid obesity. I cannot palpate any masses. EXTREMITIES: Lower extremities also showed morbid obesity. I cannot palpate femoral pulses. Pedal pulses are present, somewhat diminished, but are present. NEUROLOGIC: The patient appears to be fully intact. She is able to ambulate without difficulties. LABORATORY DATA: Shows a troponin I of 0.10, most likely associated with the tachycardia. Otherwise, her BUN was 20, creatinine 0.98, potassium was 3.7, sodium was 137, blood sugar was 90. Her CBC showed a hemoglobin of 13.2 with hematocrit of 47 with platelet count of 350,000, WBC was 3.6. IMPRESSION: 1. New onset of atrial fibrillation in patient with cardiomyopathy with a decreased ejection fraction. Her last echocardiogram was performed in June 10, 2019, at which time, the ejection fraction was felt to be 30% to 35%. She had severe dilatation of the left atrium, which certainly would predispose her to having atrial fibrillation. She also had mild to moderate mitral valve regurgitation. Left atrium was measured at 5.9 cm, which is certain this lady will be at an increased risk of continuing with her atrial fibrillation. We may discuss this case with the sheet rocker. She may be a candidate to undergo ablation of atrial fibrillation should she continue to have episodes of atrial fibrillation, it cannot be controlled by medical management due to her history of cardiomyopathy. Certainly, this would not help her ejection fraction should she have atrial fibrillation with rapid ventricular response. Again, there is no EKG in the chart that I can find and we will need to repeat the EKG. I do not know where those records are when she had atrial fibrillation, how fast the heart rate was at that time. It was reported that the heart rate was in the 150s when she was seen by the platform builder, but perhaps four EKGs were performed. She converted to sinus rhythm since she was given the diltiazem. 2. History of cardiomyopathy, which is nonischemic in nature. 3. History of hypertension, this is under good control at this time. 4. History of anemia. Obviously, she has had no anemia at this time. I could perhaps hold off on the iron at this time since she has no evidence of anemia and her hemoglobin would be normal at 13.2 with hematocrit, which is above normal at 47.1%. We will be more than happy to continue to follow the patient with you, but we will certainly discuss her case with sheet rocker to see whether or not she may be a candidate for an ablation of the atrial fibrillation. Job ID: [id number]
[2019-07-21 07:43] LABS: Anion Gap 15 mmol/L (10-20); BUN (Urea Nitrogen) 14 mg/dL (7.0-18.7); Calc. Creatinine Clearance 208 mL/min (70-130); Calcium 8.9 mg/dL (7.8-10.44); Carbon Dioxide 22 mmol/L (22-29); Chloride 104 mmol/L (98-107); Estimated GFR-MDRD Greater than 90; Glucose 96 mg/dL (70-105); Potassium 3.8 mmol/L (3.5-5.1); Sodium 137 mmol/L (136-145)
[2019-07-21 07:49] LABS: #Lymphocytes 1.8 thou/uL (1.20-3.40); #Monocytes 0.5 thou/uL (0.11-0.59); #Neutrophils 1.6 thou/uL (1.40-6.50); %Basophils 0.5 % (0.0-1.0); %Eosinophils 0.3 % (0.0-10.0); %Lymphocytes 46.1 % (21.0-51.0); %Monocytes 11.8 % (0.0-10.0); %Neutrophils 41.2 % (42.0-75.0); Anisocytosis SLIGHT = 6-15 cells (100X) (0-5/hpf); Hemoglobin 12.5 g/dL (12.0-16.0); MDiff Complete? YES; Mean Corpuscular Hemoglobin 22.3 pg (27.0-31.0); Mean Platelet Volume 10.3 fL (7.4-10.4); Microcytosis SLIGHT = 6-15 cells (100X) (0-5/hpf); Platelet Count 218 thou/uL (130-400); Red Blood Cell (RBC) Count 5.59 mill/uL (4.20-5.40)
[2019-07-21 08:04] LABS: Free T4 (Free Thyroxine) 1.12 ng/dL (0.70-1.48); Thyroid Stimulating Hormone 1.4498 uIU/mL (0.35-4.94)
[2019-07-21] MEDS: Ferrous Sulfate 325 MG TAB PO SCH (08:13)
[2019-07-21] MEDS: Enoxaparin Sodium 30 MG/0.3 ML SYRINGE SC SCH ×2 (08:14→22:32)
[2019-07-21] MEDS: Furosemide 40 MG TAB PO SCH ×2 (08:14→22:33)
[2019-07-21] MEDS: Aspirin 81 mg Enteric Coated Tablet PO SCH (08:14)
[2019-07-21] MEDS: Famotidine 20 MG TAB PO SCH ×2 (08:14→22:33)
[2019-07-21] MEDS: Enoxaparin Sodium 100 MG/ML SYRINGE SC SCH ×2 (08:14→22:32)
[2019-07-21] MEDS: Digoxin 0.125 MG TAB PO SCH (08:14)
[2019-07-21] MEDS: Carvedilol 6.25 MG TAB PO SCH ×2 (08:21→22:32)
--- NOTE | 2019-07-21 15:56 | PDOC.CPN ---
- Subjective Date: 07/21/19 Time: 16:00 Interval history: The pt seen and examined. No overnight events. No cardiac complaints. - Objective Allergies/Adverse Reactions: Allergies Allergy/AdvReac Type Severity Reaction Status Date / Time lisinopril Allergy Anaphylaxis Verified 06/10/19 17:19 Visit Medications: Current Medications Acetaminophen (Tylenol) 650 mg PO Q4H PRN PRN Reason: Headache/Fever/Mild Pain (1-3) Aspirin (Ecotrin) 81 mg PO DAILY [facility] Last Admin: 07/21/19 08:14 Dose: 81 mg Bisacodyl (Dulcolax) 10 mg [place] DAILYPRN PRN PRN Reason: Constipation Carvedilol (Coreg) 6.25 mg PO BID [facility] Last Admin: 07/21/19 08:21 Dose: 6.25 mg Digoxin (Lanoxin) 0.125 mg PO DAILY [facility] Last Admin: 07/21/19 08:14 Dose: 0.125 mg Enoxaparin Sodium (Lovenox) 100 mg SC 0900,2100 [facility] Last Admin: 07/21/19 08:14 Dose: 100 mg Enoxaparin Sodium (Lovenox) 30 mg SC 0900,2100 [facility] Last Admin: 07/21/19 08:14 Dose: 30 mg Famotidine (Pepcid) 20 mg PO BID [facility] Last Admin: 07/21/19 08:14 Dose: 20 mg Ferrous Sulfate (Feosol) 325 mg PO DAILY [facility] Last Admin: 07/21/19 08:13 Dose: 325 mg Furosemide (Lasix) 40 mg PO BID [facility] Last Admin: 07/21/19 08:14 Dose: 40 mg Guaifenesin/Dextromethorphan (Robitussin Dm) 15 ml PO Q4H PRN PRN Reason: Cough Diltiazem HCl 125 mg/ Sodium (Chloride) 125 mls @ 5 mls/hr IVPB INF [facility]; Protocol Last Admin: 07/21/19 14:13 Dose: 125 mls Ondansetron HCl (Zofran) 4 mg IVP Q6H PRN PRN Reason: Nausea/Vomiting Sacubitril/Valsartan (Entresto 24 Mg-26 Mg Tablet) 1 tab PO BID [facility] Last Admin: 07/21/19 08:14 Dose: 1 tab Senna/Docusate Sodium (Senokot S) 2 tab PO BID PRN PRN Reason: Constipation Vital Signs & Weight: Vital Signs Temp Pulse Resp BP Pulse Ox 07/21/19 15:00 98.3 F 77 18 111/76 98 07/21/19 11:06 98 F 82 18 129/81 97 07/21/19 07:18 98.1 F 81 18 133/89 95 Weight 306 lb 14.4 oz - Physical Exam General: alert & oriented x3 HEENT: mucus membranes moist Neck: supple neck Cardiac: regular rate and rhythm, S1/S2 Lungs: decreased breath sounds Neuro: cranial nerve 2-12 intact Extremities: no edema - Labs Result Diagrams: 07/21/19 07:21 07/21/19 07:21 Troponin/CKMB CK-MB (CK-2) 3.2 ng/mL (0-6.6) 07/20/19 15:58 Troponin I 0.104 ng/mL (< 0.028) H 07/20/19 15:58 - Telemetry Sinus rhythms and dysrhythmias: sinus rhythm - Assessment/Plan Assessment/Plan: 1. Prox Afib with RVR - One episode of Afib with RVR last night; Remains in SR now with Diltiazem 5mg/h and Digoxin 0.125mg qd; On Coreg 6.25mg bid and Lovenox 2. Chronic Systolic HF with EF 25-30% - stable with RA; on Coreg, Entresto, and Lasix 3. Non-ischemic CMY - on LifeVest (the LifeVest is off now since she is on tele monitor) 4. HTN - stable MAR reviewed * Echo on 07/21/2019 with EF 25-30% (on LifeVest), mod dilated LA, mod MR and trace TR Pt. seen and eval. by me. I agree with the A/P by the CIGARETTE TIPPER. She denies any cardiac complaints. She has remained in NSR since last PM. She was asymptomatic during the Afib. Will try to increase coreg and transition off the diltiazem due to her CMY. Continue entresto. Chest clear. RRR. gjm
--- NOTE | 2019-07-21 21:02 | PDOC.HOSPP ---
- Subjective Encounter Date: 07/21/19 Encounter Time: 16:00 Subjective: No overnight evens. This afternoon, patient feeling well and ambulating on the floor. Has no complaints. - Objective Vital Signs & Weight: Vital Signs (12 hours) Temp Pulse Resp BP BP Pulse Ox 07/21/19 19:10 97.6 F 80 18 121/88 98 07/21/19 15:00 98.3 F 77 18 111/76 98 07/21/19 11:06 98 F 82 18 129/81 97 Weight Weight 306 lb 14.4 oz Result Diagrams: 07/21/19 07:21 07/21/19 07:21 Hospitalist ROS - Review of Systems Constitutional: denies: fever, chills, sweats, weakness, malaise, other Respiratory: denies: cough, dry, shortness of breath, hemoptysis, SOB with excertion, pleuritic pain, sputum, wheezing, other Cardiovascular: denies: chest pain, palpitations, orthopnea, paroxysmal noc. dyspnea, edema, light headedness, other Gastrointestinal: denies: nausea, vomiting, abdominal pain, diarrhea, constipation, melena, hematochezia, other Genitourinary: denies: dysuria, frequency, incontinence, hematuria, retention, other Neurological: denies: weakness, numbness, incoordination, change in speech, confusion, seizures, other - Medication Medications: Active Medications Generic Name Dose Route Start Last Admin Trade Name Freq PRN Reason Stop Dose Admin Aspirin 81 mg 07/21/19 09:00 07/21/19 08:14 Ecotrin PO 81 mg DAILY NADIYA Administration Carvedilol 6.25 mg 07/20/19 21:00 07/21/19 08:21 Coreg PO 6.25 mg BID NADIYA Administration Digoxin 0.125 mg 07/21/19 09:00 07/21/19 08:14 Lanoxin PO 0.125 mg DAILY NADIYA Administration Enoxaparin Sodium 100 mg 07/20/19 21:00 07/21/19 08:14 Lovenox SC 100 mg 0900,2099 NADIYA Administration Enoxaparin Sodium 30 mg 07/20/19 21:00 07/21/19 08:14 Lovenox SC 30 mg 0900,2100 NADIYA Administration Famotidine 20 mg 07/20/19 21:00 01/18/20 08:14 Pepcid PO 20 mg BID NADIYA Administration Ferrous Sulfate 325 mg 07/21/19 09:00 07/21/19 08:13 Feosol PO 325 mg DAILY NADIYA Administration Furosemide 40 mg 07/20/19 21:00 07/21/19 08:14 Lasix PO 40 mg BID NADIYA Administration Diltiazem HCl 125 mg/ Sodium 125 mls @ 5 mls/hr 07/20/19 19:15 07/21/19 14:13 Chloride IVPB 125 mls INF NADIYA Administration Protocol 5 MG/HR Sacubitril/Valsartan 1 tab 07/20/19 21:00 07/21/19 08:14 Entresto 24 Mg-26 Mg Tablet PO 1 tab BID NADIYA Administration - Exam General Appearance: NAD, awake alert Eye: PERRL ENT: normocephalic atraumatic, no oropharyngeal lesions, moist mucosa Heart: RRR, no murmur, no gallops, no rubs, normal peripheral pulses Respiratory: CTAB, no wheezes, no rales, no ronchi, normal chest expansion, no tachypnea, normal percussion Gastrointestinal: soft, non-tender, non-distended, normal bowel sounds, no palpable masses, no hepatomegaly, no splenomegaly, no bruit Psychiatric: normal affect, normal behavior, A&O x 3 Hosp A/P - Plan 1. Prox Afib with RVR -currently sinus -per cardiology, will remove cardizem drip and transition to oral medications 2. Influenza -within 48 hours of presentation, and considering cardiac disease, will start oseltamivir 3. HFrEF 25-30% - euvolemic, continue Coreg, Entresto, and Lasix 4. Non-ischemic cardiomyopathy - on LifeVest (the LifeVest is off now since she is on tele monitor) 5. HTN - well controlled, will continue current regimen
[2019-07-21] MEDS ORDERED: Oseltamivir 75 MG CAP PO SCH (21:45)
[2019-07-21 22:30] LABS: #Basophils 0.1 thou/uL (0.0-0.2); #Lymphocytes 1.5 thou/uL (1.20-3.40); #Monocytes 0.4 thou/uL (0.11-0.59); #Neutrophils 1.5 thou/uL (1.40-6.50); %Basophils 1.7 % (0.0-1.0); %Eosinophils 0.5 % (0.0-10.0); %Lymphocytes 43.2 % (21.0-51.0); %Monocytes 12.1 % (0.0-10.0); %Neutrophils 42.5 % (42.0-75.0); Anion Gap 14 mmol/L (10-20); BUN (Urea Nitrogen) 12 mg/dL (7.0-18.7); Calc. Creatinine Clearance 205 mL/min (70-130); Calcium 8.8 mg/dL (7.8-10.44); Carbon Dioxide 24 mmol/L (22-29); Chloride 104 mmol/L (98-107); Estimated GFR-MDRD Greater than 90; Glucose 79 mg/dL (70-105); Mean Corpuscular HGB CONC 30.5 g/dL (32.0-36.0); Mean Corpuscular Hemoglobin 22.7 pg (27.0-31.0); Mean Corpuscular Volume 74.4 fL (78.0-98.0); Platelet Count 202 thou/uL (130-400); Red Blood Cell (RBC) Count 5.31 mill/uL (4.20-5.40); Sodium 138 mmol/L (136-145); White Blood Cell (WBC) Count 3.5 thou/uL (4.8-10.8)
[2019-07-22] MEDS: Carvedilol 6.25 MG TAB PO SCH (08:29)
[2019-07-22] MEDS: Aspirin 81 mg Enteric Coated Tablet PO SCH (08:29)
[2019-07-22] MEDS: Digoxin 0.125 MG TAB PO SCH (08:29)
[2019-07-22] MEDS: Enoxaparin Sodium 30 MG/0.3 ML SYRINGE SC SCH (08:30)
[2019-07-22] MEDS: Famotidine 20 MG TAB PO SCH (08:30)
[2019-07-22] MEDS: Enoxaparin Sodium 100 MG/ML SYRINGE SC SCH (08:30)
[2019-07-22] MEDS: Furosemide 40 MG TAB PO SCH (08:31)
[2019-07-22] MEDS: Ferrous Sulfate 325 MG TAB PO SCH (08:31)
[2019-07-22] MEDS ORDERED: Oseltamivir 75 MG CAP PO SCH (09:00)
[2019-07-22 09:24] LABS: Hemoglobin 12.1 g/dL (12.0-16.0); Platelet Count 203 thou/uL (130-400)
[2019-07-22 09:39] LABS: Calc. Creatinine Clearance 226 mL/min (70-130); Estimated GFR-MDRD Greater than 90
[2019-07-22] MEDS ORDERED: Carvedilol 6.25 MG TAB PO SCH ×2 (11:00→17:00)
[2019-07-22 12:01] VITALS: BP 117/70; TEMP 97.5
--- NOTE | 2019-07-22 16:09 | PDOC.CPN ---
- Subjective Date: 07/22/19 Time: 16:09 Interval history: The pt seen and examined. No overnight events. No cardiac complaints. - Objective Allergies/Adverse Reactions: Allergies Allergy/AdvReac Type Severity Reaction Status Date / Time lisinopril Allergy Anaphylaxis Verified 06/10/19 17:19 Visit Medications: Current Medications Acetaminophen (Tylenol) 650 mg PO Q4H PRN PRN Reason: Headache/Fever/Mild Pain (1-3) Apixaban (Eliquis) 5 mg PO BID [facility] Aspirin (Ecotrin) 81 mg PO DAILY [facility] Last Admin: 07/22/19 08:29 Dose: 81 mg Bisacodyl (Dulcolax) 10 mg [place] DAILYPRN PRN PRN Reason: Constipation Carvedilol (Coreg) 12.5 mg PO BID[facility] Digoxin (Lanoxin) 0.125 mg PO DAILY [facility] Last Admin: 07/22/19 08:29 Dose: 0.125 mg Famotidine (Pepcid) 20 mg PO BID [facility] Last Admin: 07/22/19 08:30 Dose: 20 mg Ferrous Sulfate (Feosol) 325 mg PO DAILY [facility] Last Admin: 07/22/19 08:31 Dose: 325 mg Furosemide (Lasix) 40 mg PO BID [facility] Last Admin: 07/22/19 08:31 Dose: 40 mg Guaifenesin/Dextromethorphan (Robitussin Dm) 15 ml PO Q4H PRN PRN Reason: Cough Ondansetron HCl (Zofran) 4 mg IVP Q6H PRN PRN Reason: Nausea/Vomiting Oseltamivir Phosphate (Tamiflu) 75 mg PO BID [facility] Stop: 07/26/19 09:01 Last Admin: 07/22/19 08:31 Dose: 75 mg Sacubitril/Valsartan (Entresto 24 Mg-26 Mg Tablet) 1 tab PO BID [facility] Last Admin: 07/22/19 08:31 Dose: 1 tab Senna/Docusate Sodium (Senokot S) 2 tab PO BID PRN PRN Reason: Constipation Vital Signs & Weight: Vital Signs Temp Pulse Resp BP BP Pulse Ox 07/22/19 11:56 97.5 F L 71 13 117/70 99 07/22/19 08:22 97.6 F 77 16 121/80 95 07/22/19 05:10 97.5 F L 78 16 102/67 96 Weight 306 lb 14.4 oz - Physical Exam General: alert & oriented x3 HEENT: mucus membranes moist Neck: supple neck Cardiac: regular rate and rhythm, S1/S2 Lungs: decreased breath sounds Extremities: no edema - Labs Result Diagrams: 07/22/19 09:09 07/22/19 09:09 Troponin/CKMB CK-MB (CK-2) 3.2 ng/mL (0-6.6) 07/20/19 15:58 Troponin I 0.104 ng/mL (< 0.028) H 07/20/19 15:58 - Telemetry Sinus rhythms and dysrhythmias: sinus rhythm - Assessment/Plan Assessment/Plan: 1. Prox Afib with RVR - remains in SR; Remains in SR with d/c Diltiazem drip and coreg 12.5mg BID; D/c home with Eliquis 2. Chronic Systolic HF with EF 25-30% - stable with RA; on Coreg, Entresto, and Lasix; will resume LifeVest at discharge 3. Non-ischemic CMY - on LifeVest (the LifeVest is off now since she is on tele monitor) 4. HTN - stable MAR reviewed * Echo on 07/21/2019 with EF 25-30% (on LifeVest), mod dilated LA, mod MR and trace TR * From Cardiac standpoint, the pt is stable to d/c home. The pt has appt with Dr Garcia's office on 07/25/2019. * The coupon and 2 wks sample of Eliquis was given to the pt today
[2019-07-22] MEDS ORDERED: Apixaban 5 MG TAB PO SCH (21:00)
--- NOTE | 2019-07-23 23:35 | DIS ---
DATE OF ADMISSION: 07/20/2019 DATE OF DISCHARGE: 07/22/2019 HOSPITAL COURSE: Ms. Childs is a 43-year-old female with medical history of cardiomyopathy, heart failure with reduced ejection fraction, and hypertension, who was referred from her primary care physician clinic due to tachycardia. The patient was found to have a heart rate of 156 at the clinic, so was sent to the ED. In the ED, she was found to have atrial flutter. In addition, she was complaining about two days of cough and recent exposure to granddaughter, who had the flu. The patient was diagnosed with new onset atrial fibrillation with RVR and influenza A. She was initially started on Cardizem drip and sinus rhythm was restored. On the day of discharge, the patient was hemodynamically stable. Heart rhythm was sinus rhythm. The patient was discharged with free sample of oral anticoagulant and followed discharges per primary care physician. Vital signs on the day of discharge were unremarkable. PHYSICAL EXAMINATION: GENERAL: She was in no apparent distress tolerated. Alert and oriented x3. HEART: Regular rate and rhythm. No murmur. No gallops. No rubs. Normal peripheral pulses. RESPIRATORY: Clear to auscultation bilaterally. No wheezes, no rales, no rhonchi. Normal chest expansion. GASTROINTESTINAL: Soft, nontender, and nondistended. Normal bowel sounds. No palpable masses. No bruits. PSYCHIATRIC: Normal affect. Normal behavior. Alert and oriented x3. ASSESSMENT AND PLAN: Ms. Childs is a 43-year-old female, who presented with new onset paroxysmal atrial fibrillation with RVR. 1. Ms. Childs was initially treated with Cardizem drip, but was transitioned to oral medication after she converted to sinus rhythm. a. While on oral medication, she remained in sinus rhythm. b. Outpatient appointment with Cardiology was scheduled. 2. Influenza A. a. The patient presented with mild symptoms of influenza after recent exposure to sick contacts. Consider her significant cardiac history and time of onset of symptoms, oseltamivir was started. b. The patient remained afebrile and asymptomatic throughout inpatient stay. c. Oseltamivir was continued for a total of five days of treatment as an outpatient. 3. Heart failure with reduced ejection fraction 25% to 30%. The patient was euvolemic throughout inpatient stay. We will continue Coreg, Entresto, and Lasix p.r.n. edema as an outpatient. 4. Nonischemic cardiomyopathy. a. The patient is on LifeVest. b. We will continue LifeVest as an outpatient. Job ID: [id number]
== END 2019-07-22 16:57 | disposition home or self-care (01) | DRG 309 ==
LOC: ERS 15:10 → 2NO 16:28
PROVIDERS: ADMIT Internal Medicine; ATTEND Internal Medicine
DX: I48.0 Paroxysmal atrial fibrillation (principal); Z68.42 Body mass index [BMI] 45.0-49.9, adult; I50.22 Chronic systolic (congestive) heart failure; J10.1 Influenza due to other identified influenza virus with other respiratory manifestations; I42.8 Other cardiomyopathies; E66.9 Obesity, unspecified; E78.5 Hyperlipidemia, unspecified; I11.0 Hypertensive heart disease with heart failure; I08.1 Rheumatic disorders of both mitral and tricuspid valves; I48.92 Unspecified atrial flutter; Z79.899 Other long term (current) drug therapy; Z79.82 Long term (current) use of aspirin
CPT/HCPCS: 36415; 80048; 82553; 82565; 83735; 84439; 84443; 84481; 85014; 85018; 85025; 85049; 87633; 93005; 93306; 96374; J1160; J1650; J3490

== ENCOUNTER 2022-09-29 11:15 | Outpatient (CLI) | payer MEDICARE, OTHER | END 2022-09-29 11:16 | disposition home or self-care (01) | LOC: DTY/OP 11:15 | PROVIDERS: ATTEND Surgery | DX: E66.01 Morbid (severe) obesity due to excess calories (principal); Z71.3 Dietary counseling and surveillance | CPT/HCPCS: 97802 ==

== ENCOUNTER 2023-02-21 09:22 | Outpatient (CLI) | payer OTHER ==
[2023-02-21] MEDS ORDERED: Regadenoson 0.4 MG/5 ML SYRINGE ONE (10:23)
== END 2023-02-21 09:23 | disposition home or self-care (01) ==
LOC: NM 09:22
PROVIDERS: ATTEND Internal Medicine Cardiovascular Disease
DX: I48.0 Paroxysmal atrial fibrillation (principal)
CPT/HCPCS: 78452; 93017; A9500; J2785

== ENCOUNTER 2023-06-06 09:00 | Inpatient (IN) | payer OTHER ==
[2023-06-22] MEDS ORDERED: Bupivacaine 0.25% HCL 30 ML VIAL ONE (07:06)
[2023-06-22] MEDS ORDERED: EPINEPHrine 1 MG/ML VIAL ONE (07:06)
[2023-06-22] MEDS ORDERED: PROPOFOL 40 ML ONE (07:12)
[2023-06-22] MEDS ORDERED: Fentanyl 250 MCG/5 ML VIAL ONE ×2 (07:12→08:43)
[2023-06-22] MEDS ORDERED: Rocuronium Bromide 10 MG/ML (10ML VIAL) ONE ×2 (07:14→07:45)
[2023-06-22] MEDS ORDERED: Dexamethasone 20 MG/5 ML VIAL ONE ×3 (07:14→10:12)
[2023-06-22] MEDS ORDERED: Ondansetron PF 4 MG/2 ML Vial ONE ×2 (07:14→07:45)
[2023-06-22] MEDS ORDERED: Lidocaine 2% PF 5 ML VIAL ONE (07:15)
[2023-06-22] MEDS ORDERED: CEFAZOLIN 2 GM VIAL ONE (07:26)
[2023-06-22] MEDS ORDERED: Sodium Chloride 0.9% 100 ML ONE (07:26)
[2023-06-22] MEDS ORDERED: Heparin 5,000 UNITS/ML VIAL ONE (07:26)
[2023-06-22] MEDS ORDERED: Ketamine In 0.9 % NaCl 50 MG/5 ML SYRINGE ONE (07:39)
[2023-06-22] MEDS ORDERED: Metoclopramide HCl 10 MG/2 ML VIAL ONE ×2 (07:45→08:46)
[2023-06-22] MEDS ORDERED: Vecuronium 10 MG VIAL ONE (07:45)
[2023-06-22] MEDS ORDERED: Ketorolac Tromethamine 30 MG/ML VIAL ONE ×2 (07:45→08:58)
[2023-06-22] MEDS ORDERED: PROPOFOL 200 MG/20 ML VIAL ONE (07:45)
[2023-06-22] MEDS ORDERED: ePHEDrine Sulfate 50 MG/10 ML VIAL ONE (07:59)
[2023-06-22] MEDS ORDERED: PHENYLEPHRINE-NS 100 MCG/ML 10 ML SYRINGE ONE ×2 (08:25)
[2023-06-22] MEDS ORDERED: Glycopyrrolate 0.2 MG/ML 5 ML SYRINGE ONE (08:36)
[2023-06-22] MEDS ORDERED: SUGAMMADEX SODIUM 200 MG/2 ML VIAL ONE ×2 (09:01→09:09)
[2023-06-22] MEDS ORDERED: Dextrose 5% in Water 1,000 ML IV PRN (09:25)
[2023-06-22] MEDS ORDERED: Ondansetron PF 4 MG/2 ML Vial IVP PRN ×2 (09:25→10:21)
[2023-06-22] MEDS ORDERED: Hydrocodone-Acetamin 15 ML UDCUP PO PRN (09:25)
[2023-06-22] MEDS ORDERED: Dextrose 50% Abboject 50 ML SYRINGE SLOW IVP PRN (09:25)
[2023-06-22] MEDS ORDERED: Promethazine HCl 25 MG/ML VIAL IM PRN ×2 (09:25→10:21)
[2023-06-22] MEDS ORDERED: diphenhydrAMINE 50 MG/ML VIAL IVP PRN ×2 (09:25→10:21)
[2023-06-22] MEDS ORDERED: Glucagon 1 MG/ML KIT IM PRN (09:25)
[2023-06-22] MEDS ORDERED: Naloxone HCl 0.4 mg/ml Vial IV PRN (10:21)
[2023-06-22] MEDS ORDERED: FENTANYL 500 MCG/10 ML VIAL 2,000 MCG in Sodium Chloride 0.9% 60 ML IV PRN (10:21)
[2023-06-22] MEDS ORDERED: diphenhydrAMINE 50 MG/ML VIAL IM PRN (10:21)
[2023-06-22] MEDS ORDERED: diphenhydrAMINE 25 MG CAP PO PRN (10:21)
[2023-06-22] MEDS ORDERED: Communication Order-Pharmacy FS SCH (10:30)
[2023-06-22] MEDS: 1/2 NS w/KCL 20 mEq 1,000 ML IV SCH ×2 (14:26→22:34)
[2023-06-22] MEDS: hydrALAZINE 20 MG/ML VIAL SLOW IVP PRN ×2 (15:22→21:14)
[2023-06-22] MEDS: CEFAZOLIN 2 GM in Sodium Chloride 0.9% 100 ML IVPB SCH ×2 (16:48→23:17)
[2023-06-22] MEDS: Carvedilol 3.125 MG TAB PO SCH (16:48)
[2023-06-23 05:24] LABS: #Monocytes 0.7 thou/uL (0.11-0.59); #Neutrophils 7.6 thou/uL (1.40-6.50); %Basophils 0.1 % (0.0-1.0); %Lymphocytes 12.9 % (21.0-51.0); %Monocytes 6.8 % (0.0-10.0); %Neutrophils 79.7 % (42.0-75.0); Hematocrit 38.6 % (36.0-47.0); Hemoglobin 11.7 g/dL (12.0-16.0); Mean Corpuscular HGB CONC 30.3 g/dL (32.0-36.0); Mean Corpuscular Hemoglobin 23.7 pg (27.0-31.0); Mean Corpuscular Volume 78.1 fl (78.0-98.0); Mean Platelet Volume 9.4 fL (7.4-10.4); Platelet Count 283 10x3/uL (130-400); Red Blood Cell (RBC) Count 4.94 mill/uL (4.20-5.40); White Blood Cell (WBC) Count 9.5 10x3/uL (4.8-10.8)
[2023-06-23 05:45] LABS: Anion Gap 12 mmol/L (10-20); BUN (Urea Nitrogen) 7 mg/dL (7.0-18.7); Calc. Creatinine Clearance 287 mL/min (70-130); Calcium 8.8 mg/dL (7.8-10.44); Carbon Dioxide 24 mmol/L (22-29); Chloride 105 mmol/L (98-107); Estimated GFR 107; Glucose 82 mg/dL (70-105); Potassium 4.2 mmol/L (3.5-5.1); Sodium 137 mmol/L (136-145)
[2023-06-23] MEDS: 1/2 NS w/KCL 20 mEq 1,000 ML IV SCH ×3 (06:30→21:57)
[2023-06-23] MEDS ORDERED: Hydrocodone-Acetamin 15 ML UDCUP PO PRN (07:55)
[2023-06-23] MEDS ORDERED: DC PCA Order Set 1 EACH FS ONE (07:56)
[2023-06-23] MEDS: Carvedilol 3.125 MG TAB PO SCH ×2 (08:20→16:41)
[2023-06-23] MEDS: Pantoprazole 40 MG VIAL IVP SCH (08:20)
[2023-06-23] MEDS: Furosemide 20 MG TAB PO SCH ×2 (08:29→13:08)
[2023-06-23 10:44] VITALS: BMI 64.5
[2023-06-24] MEDS: 1/2 NS w/KCL 20 mEq 1,000 ML IV SCH ×2 (06:55→15:47)
[2023-06-24] MEDS: Furosemide 20 MG TAB PO SCH ×2 (10:30→15:47)
[2023-06-24] MEDS: Carvedilol 3.125 MG TAB PO SCH (10:30)
[2023-06-24] MEDS: Pantoprazole 40 MG VIAL IVP SCH (10:31)
[2023-06-24 12:10] VITALS: BP 149/76; TEMP 98.3
== END 2023-06-24 17:44 | disposition home health service (06) | DRG 620 ==
LOC: SURG A 06-22 06:58 → CCU 06-22 12:54 → 2NO 06-23 17:04
PROVIDERS: ADMIT Surgery; ATTEND Surgery
PROC: 0DB64Z3 Excision of Stomach, Percutaneous Endoscopic Approach, Vertical (ICD-10-PCS; principal; 2023-06-22)
PROC: 8E0W4CZ Robotic Assisted Procedure of Trunk Region, Percutaneous Endoscopic Approach (ICD-10-PCS; 2023-06-22)
PROC: 3E033XZ Introduction of Vasopressor into Peripheral Vein, Percutaneous Approach (ICD-10-PCS; 2023-06-22)
DX: E66.01 Morbid (severe) obesity due to excess calories (principal); I42.9 Cardiomyopathy, unspecified; I50.22 Chronic systolic (congestive) heart failure; I10 Essential (primary) hypertension; M17.9 Osteoarthritis of knee, unspecified; R53.81 Other malaise; I11.0 Hypertensive heart disease with heart failure; M19.90 Unspecified osteoarthritis, unspecified site; G89.4 Chronic pain syndrome; D64.9 Anemia, unspecified; Z68.44 Body mass index [BMI] 60.0-69.9, adult; Z95.810 Presence of automatic (implantable) cardiac defibrillator; Z79.899 Other long term (current) drug therapy; Z98.890 Other specified postprocedural states; Z83.3 Family history of diabetes mellitus; Z82.49 Family history of ischemic heart disease and other diseases of the circulatory system; Z80.41 Family history of malignant neoplasm of ovary; Z88.8 Allergy status to other drugs, medicaments and biological substances; Z98.51 Tubal ligation status
CPT/HCPCS: 36415; 80048; 85025; 88307; C9113; J0171; J0360; J1100; J1644; J1650; J1885; J2001; J2405; J2704; J2765; J3010; J3480; J3490; S0020

== ENCOUNTER 2023-06-09 09:28 | Outpatient (CLI) | payer OTHER ==
[2023-06-09 12:40] LABS: #Eosinphils 0.3 10x3/uL (0.0-0.5); #Monocytes 0.4 10x3/uL (0.0-1.1); #Neutrophils 4.1 10x3/uL (1.5-8.4); %Basophils 0.6 % (0.0-2.0); %Eosinophils 4.1 % (0.0-6.0); %Lymphocytes 31.2 % (18.0-47.0); %Monocytes 5.7 % (0.0-10.0); Hematocrit 40.5 % (34.9-44.5); Hemoglobin 12.2 g/dL (12.0-15.5); Mean Corpuscular HGB CONC 30.1 g/dL (32.0-36.0); Mean Corpuscular Hemoglobin 23.5 pg (27.0-33.0); Mean Platelet Volume 9.6 fl (7.4-10.4); Platelet Count 277 10x3/uL (150-450); RBC Distribution Width 14.9 % (11.5-14.5); Red Blood Cell (RBC) Count 5.19 10x6/uL (3.90-5.03); White Blood Cell (WBC) Count 7.1 10x3/uL (3.5-10.5)
[2023-06-09 14:33] LABS: ALT (SGPT) 13 U/L (8-55); AST (SGOT) 16 U/L (5-34); Alkaline Phosphatase 66 U/L (40-110); Anion Gap 15 mmol/L (10-20); BUN (Urea Nitrogen) 13 mg/dL (7.0-18.7); Bilirubin, Direct 0.3 mg/dL (0.1-0.3); Bilirubin, Total 0.9 mg/dL (0.2-1.2); Calc. Creatinine Clearance 0 mL/min (70-130); Calcium 9.2 mg/dL (7.8-10.44); Carbon Dioxide 26 mmol/L (22-29); Chloride 105 mmol/L (98-107); Estimated GFR 93; Globulin 3.6 g/dL (2.4-3.5); Glucose 93 mg/dL (70-105); Protein, Total 7.6 g/dL (6.0-8.3); Sodium 142 mmol/L (136-145)
== END 2023-06-09 09:29 | disposition home or self-care (01) ==
LOC: LABBT 09:28
PROVIDERS: ATTEND Surgery
DX: Z01.818 Encounter for other preprocedural examination (principal); E66.01 Morbid (severe) obesity due to excess calories
CPT/HCPCS: 80053; 80076; 85025; 93005; 93010